=== PATIENT | female | born 1995 | race Caucasian/White ===

== ENCOUNTER 2017-11-29 20:02 | Emergency (ER) | payer SELFPAY ==
[~2017-11-29] VITALS: Ht 170.2 cm; Wt 123.0 kg
[2017-11-29 20:33] LABS: HEMATOCRIT 33.9 % (36.0-46.0); HEMOGLOBIN 11.4 G/DL (11.9-15.5); MCH 28.6 PG (29.0-34.0); MCHC 33.6 G/DL (30.0-36.0); PLATELET COUNT 244 K/uL (156-360); RBC DIS.WIDTH-CV 15.5 % (11.8-14.6); RBC DIS.WIDTH-SD 48.1 % (39-53); RED BLOOD COUNT 3.99 M/uL (3.80-5.20); WHITE BLOOD COUNT 6.8 K/uL (4.1-10.2)
[2017-11-29 20:42] LABS: ALBUMIN 4.2 g/dL (3.2-4.8)
[2017-11-29 20:43] LABS: CHLORIDE 109 mEq/L (99-109); POTASSIUM 4.1 mEq/L (3.7-5.4); SODIUM 142 mEq/L (136-147)
[2017-11-29 20:45] LABS: GLUCOSE 101 mg/dL (70-99); TOTAL PROTEIN 6.8 g/dL (6.4-8.3)
[2017-11-29 20:47] LABS: TOTAL BILIRUBIN 0.3 mg/dL (0.0-1.0)
[2017-11-29 20:48] LABS: ALKALINE PHOSPHATASE 56 IU/L (3-129)
[2017-11-29 20:49] LABS: CREATININE 1.2 mg/dL (0.6-1.3); GFR ESTIMATE (CALCULATED) > 59 mL/min/
[2017-11-29 20:50] LABS: APPEARANCE CLEAR ((CLEAR)); BILIRUBIN NEGATIVE; BLOOD NEGATIVE; COLOR YELLOW ((YELLOW)); GLUCOSE (STRIP) NEGATIVE; KETONES NEGATIVE; LEUKOCYTES TRACE; NITRITE NEGATIVE; PROTEIN (STRIP) NEGATIVE; SPECIFIC GRAVITY 1.026 (1.000-1.030); UROBILINOGEN 0.2 MG/DL (0.2-1.0)
[2017-11-29 20:51] LABS: AST (GOT) 16 IU/L (2-34); UREA NITROGEN (BUN) 9 mg/dL (9-23)
[2017-11-29 20:52] LABS: ALT (GPT) 17 IU/L (3-49)
[2017-11-29 20:57] LABS: QUANTITATIVE HCG < 4.0 MIU/ML
[2017-11-29 21:03] LABS: BACTERIA RARE /HPF; EPITHELIAL CELLS 1+ /HPF; MUCUS TRACE /LPF; UCUL ADDED? NO; WHITE BLOOD CELLS 0-5 /HPF (0-5)
[2017-11-29 21:25] VITALS: BP 120/68
== END 2017-11-29 21:25 | disposition home or self-care (01) ==
LOC: EME 20:02
DX: R10.30 Lower abdominal pain, unspecified (principal); R11.0 Nausea; N91.2 Amenorrhea, unspecified; Z72.0 Tobacco use
CPT/HCPCS: 76856; 80053; 81003; 84702; 85027